=== PATIENT | female | born 1960 | race Caucasian/White ===

== ENCOUNTER → 2021-05-12 12:23 | Outpatient (CLI) | payer OTHER, SELFPAY ==
--- NOTE | 2021-05-12 12:34 | DI.CT.S_ITS ---
PROCEDURE: CT LUMBAR SPINE WO CON INDICATIONS: spinal stenosis TECHNIQUE: Noncontrast 3 mm thick sections acquired from the T12 level to the sacrum. Sagittal and coronal reformats were constructed. For radiation dose reduction, the following was used: automated exposure control. COMPARISON: [facility] Outside Film, MR, MR LUMBAR SPINE WITHOUT CONTRAST, 02/02/2021, 9:19. FINDINGS: Image quality: Excellent. Bones: There is trace retrolisthesis L2 on L3. There are no visualized fractures or dislocations. No suspicious osseous lesions. Minimal anterior osteophytes are noted most notable L2. Sclerotic endplate changes are present L1-L2. [id number]-[id number] multilevel degenerative disc space narrowing is throughout the lumbar spine. Disc bulges are present L1-L2 L2-3 3 L3-4, L4-5 L5-S1. There appears to be persistence left posterior lateral disc extrusion at L5-S1, although better appreciated on MRI exam. Mild spinal stenosis is present L2-3 L3-4, moderate L4-5 moderate to severe L5-S1. Overall appearance is unchanged. Multilevel foraminal narrowing is present, mild right at L1-2, mild left L2-3, mild bilateral L3-4, moderate to severe in the left lateral recess as well as moderate bilateral L4-5, moderate to severe left L5-S1 with significant narrowing through the lateral recess. Multilevel facet hypertrophy is present. Soft tissues: No retroperitoneal masses or hematomas. Visualized aorta is normal in caliber. IMPRESSION: 1. Multilevel disc bulges persistent extrusion at L5-S1. 2. Multilevel spinal stenosis at L2-3, L3-4, L4-5 and most significant at Dictated by: Antionette Navarro M.D. on 05/12/2021 at 20:29 Approved by: Antionette Navarro M.D. on 05/12/2021 at 20:35
== END ==
LOC: CT 12:30
PROVIDERS: Referring Provider Orthopaedic Surgery Orthopaedic Surgery of the Spine; Visit Provider Orthopaedic Surgery Orthopaedic Surgery of the Spine
DX: M51.27 Other intervertebral disc displacement, lumbosacral region (principal); M48.061 Spinal stenosis, lumbar region without neurogenic claudication; M48.07 Spinal stenosis, lumbosacral region
CPT/HCPCS: 72131

== ENCOUNTER → 2021-05-22 14:35 | Outpatient (CLI) | payer OTHER, SELFPAY ==
[2021-05-22 15:06] LABS: COVID19 -Nasal RAPID Negative (Negative)
== END ==
PROVIDERS: Visit Provider Nurse Practitioner Family
DX: Z01.812 Encounter for preprocedural laboratory examination (principal); Z20.822 Contact with and (suspected) exposure to COVID-19
CPT/HCPCS: 87635

== ENCOUNTER 2021-05-25 10:30 | Observation (INO) | payer OTHER, SELFPAY ==
[2021-05-20 08:04] VITALS: BMI 26.6
[2021-05-25] VITALS (12 sets, daily range): BP systolic 124–160; BP diastolic 73–102; PULSE 77–87; RESP 12–16; TEMP 35.8–36.7; O2SAT 92–100; BMI 26.6
[2021-05-25] MEDS: LACTATED RINGERS 1,000 ML 42 ML IV (11:28)
--- NOTE | 2021-05-25 11:31 | PM.PREOP ---
Pre-operative Note COVID-19 COVID-19 status: Negative Criteria for continued procedure: Expected advancement of disease process, Possibility delay results in more complex future surgery or treatment, Increased loss of function, Continuing or worsening of significant or severe pain, Deterioration of the patient's condition or overall health, Delay expected to result in less-positive ultimate med/surg outcome and Non-surgical alternatives not available or appropriate per current SOC Interval Note History & Physical reviewed/Exam performed by Physician: Yes Changes to H&P: No
[2021-05-25] MEDS: CEFAZOLIN 2 GM/20 ML SYRINGE IV (12:10)
--- NOTE | 2021-05-25 12:34 | SUR.OPER ---
Prone on spine table, head in foam head support, padded chest and pelvic supports, gel pad at knees, lower legs supported by pillows; nipples, genitalia and toes free of pressure, arms secured on foam padded arm boards at <90 degrees abduction. Tape over blanket at thigh secured to table.
[2021-05-25] MEDS: BUPIVACAINE LIPOSOME 266 MG/20 ML VIAL INJ (12:47)
[2021-05-25] MEDS: BUPIVACAINE 0.25% (PF) 30 ML, EPINEPHrine 0.3 MG INJ (12:47)
--- NOTE | 2021-05-25 15:00 | DI.RAD.S_ITS ---
PROCEDURE: XR LUMBAR SPINE 2-3V INDICATIONS: L4-5, L5-S1 TLIF TECHNIQUE: 2 views of the lumbar spine were acquired. COMPARISON: None. FINDINGS: Bones: Postsurgical changes compatible with L4-L5 and L5-S1 TLIF. Soft tissues: Overlying bowel gas pattern is normal. No suspicious soft tissue calcifications. IMPRESSION: Active postsurgical change for L4-L5 and L5-S1 TLIF. Dictated by: Elisabeth Pop MD, PhD on 05/25/2021 at 15:12 Approved by: Elisabeth Pop MD, PhD on 05/25/2021 at 15:13
--- NOTE | 2021-05-25 15:53 | P.OP_ITS ---
Operative Date/Time/Diagnoses Date of procedure: 05/25/21 Time of procedure: 12:10 Pre-op diagnosis: 1. L4-5, L5-S1 spondylolisthesis 2. L4-5, L5-S1 spinal stenosis with neurogenic claudication. Post-op diagnosis: same Procedure & Clinicians Procedure: 1. L4-5, L5-S1 Postero-lateral and posterior interbody fusion 2. L4-5, L5-S1 interbody cage placement. 3. L4-5, L5-S1 decompressive laminectomy with bilateral facetecomies 4. L4-5, L5-S1 Posterior segmental instrumentation 5. Chan[place] of bone marrow from iliac crest 6. Utilization of microsurgical technique and operating microscope 7. Utilization of Excelsius robotic surgery Same procedure as scheduled: Yes Indications: Patient has been having chronic back pain and worsening lumbar radiculopathy. Patient failed multiple conservative management with worsening pain weakness and numbness in her lower extremity. Patient has been having difficulty performing activity of daily living. After discussing risks benefits of treatment options, patient elected proceed with surgery. Surgeon: Teresa Hemphill Coordinator Hotels: Katerin Brown Click Yes if Unassisted: No Anesthesia Type: General Operative Notes Closure Type: primary Specimen(s): none sent Applied: catheter Estimated Blood Loss (mL): 100 Blood products transfused: none Procedure in detail: Patient was seen in the preoperative area. Risks and benefits of the surgery was discussed with the patient. Informed consent was obtained from the patient and p laced in the chart. Surgical site was marked. Patient was taken to the operative room. General anesthesia was administered. Prophylactic antibiotic was given to the patient less than 30 min before the incision was made. Patient was placed into a prone position on the Shay table. Patient's back was then prepped and draped in the sterile fashion. Time-out was performed at this time. After patient was prepped and draped, patient's PSIS was palpated and marked bilaterally. Small 1 cm incision was made over the PSIS for placement of the reference probes. Two trocar was placed into the PSIS 1 on each side. The reference probe was attached to the trocar of the reference apparatus. At this time the C-arm imaging was used to confirm AP and lateral of L4-L5, L5- S1 vertebrae and merged the C-arm imaging using the Atterocorus robotic navigation system with the CT of the lumbar spine. After successful merging was completed and confirmed, skin marker was used to kavita out the skin incision using the ProofPilot robotic arm. Bilateral incision was made at this time. Pre templated trajectory was used and guided using the ProofPilot robotic navigation system for bilateral L4, L5, S1 pedicle screw placement. This was done by using the robotic arm to guide the high-speed bur to make a cortical entry point. Next a drill was placed also using the robotic arm and guided using the navigation system drilling partially through bilateral L4, L5 and S1 pedicles. Next L4, L5, S1 pedicle screws it was pre templated and measured was placed onto the power petrol tanker driver and inserted into the pedicles bilaterally. After all 6 screws were placed C-arm imaging was taken of both AP and lateral to confirm the placement. Excellent placement of the screws were confirmed and a matched precisely with the pre planned screw placement using the navigation system. MARs retractor was inserted using Moki - formerly MokiMobilityivation guidence. Globus MARS retractors was placed inside the incision and docked onto the L4 and L5 lamina. Using microsurgical technique and operating microscope, a L4, L5 laminectomy and L4-5, L5-S1 facetectomy was performed using a Kerrison rongeur. Patient was found have severe lateral recess and neural foramen stenosis which was fully decompressed after the laminectomy facetectomy. More than 75% of the facets were removed during the process of decompression rendering L4-5, L5-S1 level grossly unstable and required a fusion procedure at the same time. The disc space at L4-5, L5-S1 was identified, and a total diskectomy was performed at L4- 5, L5-S1 level. The endplates were decorticated using a rasp and shaver. The total diskectomy and decortication was performed at L4-5, L5-S1 level in order to to accomplish a L4-5, L5-S1 fusion. The local bone from the laminectomy and facetectomy was saved for local bone grafting. After the total diskectomy and decortication was completed, Trifecta bone graft material was combined with local bone that was harvested earlier. At this time, a separate skin is incision was made over the iliac crest. A Jamshidi needle was inserted into the iliac crest through a separate skin incision. 5 cc of bone marrow aspiration was obtained through the separate skin incision using a Jamshidi needle from the iliac crest. The bone marrow aspiration was combined with local bone and the Trifecta bone grafting material. The bone grafting material was placed into the L4-5, L5-S1 interbody space along with a expandable cage. The cage was expanded to its maximum height using the torque limiting screwdriver. The disc preparation as well as the cage insertion were also performed under navigation guidance. After the cage was placed, AP and lateral C-arm imaging was taken to confirm placement of the cage and excellent position was confirmed. Globus MARS retractor was inserted and docked onto the L4-5, L5-S1 posterolateral gutter on the right side. Using the power drill, posterior- lateral decortication was performed at L4-5, L5-S1 level until bleeding cortical bone was identified. The remaining bone grafting material was placed into the L4-5, L5-S1 posterior lateral gutter he order to accomplish posterolateral fusion at the L4-5, L5-S1 level. At this time the tulips were attached to the L4, L5, S1 pedicle screw shanks. After measuring the length of the rods, they were inserted into the tulips of the pedicle screws and locked in place using locking caps and torque limiting screwdriver bilaterally. Total 6 caps and 2 titanium rods was used in order to complete the posterior instrumentation construct. After all the hardware was placed, and confirmed with AP and lateral C-arm imaging, the wound was then irrigated with sterile normal saline and packed with Ray-Christine gauze for 3 min to accomplish hemostasis. After the gauze was removed the deep fascia was closed with #1 Vicryl suture. The subcutaneous layer was closed with 2-0 Vicryl. The skin was closed with skin jennifer. Patient tolerated the procedure well. There were no complications. Neuro monitoring system was used to monitor patient's neurologic status throughout entire procedure. There was no disturbance of the neural monitoring signals throughout the case. Complications: none Post-operative Condition: stable Disposition: PACU Plan for aftercare: Admit to inpatient hospital
--- NOTE | 2021-05-25 16:37 | PC.NURSE ---
Day shift: Pt on unit from PACU at approx 1630. She is A&Ox4. She denies any pain or nausea. VS WNL. 97% RA. CMS OK and PPP. Dressing over op-site is CDI. She dose have intermittent shivers now and in PACU (per CROP DUSTER HELPER report). Oriented to room and call light. Agrees to not get OOB w/o help from staff. Richard is patent with clear yellow output. Instructed on I.S. use. IV infusing per JUL.
--- NOTE | 2021-05-25 16:38 | SUR.PHASEI ---
1600-May 25. Pacu note: more awake and alert. transient shivering .no pain. afebrile. warm blankets on and shivers settled down. neuro checks intact no deficit BLE. 162-Report to DarinyGricelda alicea RN -prior to transfer. no shivering. 162-shivering returned when attempt to remove from monitors. blankets reapplied. no fever. csm intact ble. awake ,alert, and oriented. to room by bed with glasses,and 2 bags of belongings. no family at hospital to update per pt.met criteria for transfer. no pain.no nausea. 1625-in room 223. bedside handoff-dressing checked with RN. id band and Experell band left arm on .
[2021-05-25] MEDS: SODIUM CHLORIDE 0.9% 1,000 ML 100 ML IV (17:00)
[2021-05-25] MEDS: HYDROMORPHONE 0.5 MG INJ IV ×2 (17:37→23:10)
[2021-05-25] MEDS: ONDANSETRON 4 MG/2 ML INJ IV (17:37)
[2021-05-25] MEDS: CEFAZOLIN 1 GM VIAL IV (20:02)
[2021-05-25] MEDS: DOCUSATE 100 MG CAPSULE PO (20:02)
[2021-05-25] MEDS: SENNOSIDES 8.6 MG TABLET 17.2 MG PO (20:02)
[2021-05-25] MEDS: hydrOXYzine pamoate 25 MG CAPSULE PO (20:02)
[2021-05-26] MEDS: SODIUM CHLORIDE 0.9% 1,000 ML 100 ML IV (02:28)
[2021-05-26] MEDS: CEFAZOLIN 1 GM VIAL IV (04:16)
[2021-05-26 04:49] VITALS: BP 124/73; PULSE 69; RESP 18; TEMP 36.4; O2SAT 98
[2021-05-26 06:03] LABS: Hematocrit 39.2 % (36-46); Hemoglobin 13.2 g/dL (12.0-16.0)
[2021-05-26 07:41] VITALS: BP 123/67; PULSE 60; RESP 16; TEMP 36.8; O2SAT 98
[2021-05-26] MEDS: OXYCODONE IR 5 MG TABLET 10 MG PO (07:50)
--- NOTE | 2021-05-26 08:10 | PM.PNPO.1 ---
Subjective Subjective Interval history: Pt sitting up in bed, states she just received pain medication (oxycodone 10 mg) and currently rates pain as 7/10. Says she has had difficulty getting comfortable. Pain in back, denies pain in legs. Has not been OOB w/ PT yet. Planning on going home with ; lives in [facility] with 3 steps to get in. Sister also available to help and is bringing seated walker today. Exam Vital Signs (past 8 hours): - 05/26/21 04:49 05/26/21 07:41 Temperature 97.5 F L 98.2 F Pulse Rate 69 60 Respiratory Rate 18 16 Blood Pressure 124/73 123/67 Pulse Oximetry 98 98 Oxygen Delivery Method Room Air Oxygen Flow Rate 0 Narrative Exam Narrative: 5/5 strength in quadriceps, hamstrings, dorsiflexors, plantarflexors bilaterally. Sensation to light touch intact BLE. Calves soft, compressible, nontender and without palpable cords or masses. Const General: cooperative and healthy appearing Orientation: alert, awake and oriented x3 Objective Labs Result Diagrams: 05/26/21 05:20 Labs: Laboratory Results - last 24 hr 05/26/21 05:20 Hgb 13.2 Hct 39.2 PFSH Medical History (Updated 05/20/21 @ 09:06 by Cecelia Sánchez RN) Osteoarthritis Other secondary scoliosis, lumbar region Sciatica Spinal stenosis Spondylolisthesis of lumbar region Surgical History (Updated 05/20/21 @ 09:06 by Cecelia Sánchez RN) Hx of eye surgery (11/2020) Social History household members: spouse Smoking Status: Never smoker alcohol intake: current Assessment & Plan Post-op Postoperative Procedures: Procedures Operation Date: 05/25/21 12:15 Actual Procedure Side Surgeon p L4-5, L5-S1 TLIF with posterior instrumentation-Robot Teresa Hemphill MD Postoperative day: 1 Postoperative status narrative: Recovery as expected s/p 2-level TLIF. Postoperative plan narrative: 1) D/c to home once cleared by PT, hopefully tomorrow. 2) D/c puentes today. 3) Will make acetaminophen scheduled and decrease oxycodone to 5 mg to help manage pain with less sedation.
--- NOTE | 2021-05-26 09:47 | OT.IP.EVAL ---
Current Diagnoses Other secondary scoliosis, lumbar region (05/25/21) Spondylolisthesis, lumbar region (05/25/21) Spinal stenosis, lumbar region with neurogenic claudication (05/25/21) Surgery Performed Operation Date: 05/25/21 12:15 Actual Procedures p L4-5, L5-S1 TLIF with posterior instrumentation-Robot - Teresa Hemphill MD Past Medical History (Last Updated 05/20/21 @ 09:06 by Cecelia Sánchez, RN) Hx of eye surgery (11/2020) Osteoarthritis Other secondary scoliosis, lumbar region Sciatica Spinal stenosis Spondylolisthesis of lumbar region Surgical History (Last Updated 05/20/21 @ 09:06 by Cecelia Sánchez RN) Hx of eye surgery (11/2020) Occupational Therapy Inpatient Evaluation/Re-Eval M1 PT/OT-IP Prior Functional Status Start: 05/26/21 12:19 Freq: NEEDED Status: Active Protocol: Document 05/26/21 12:19 [facility] (Rec: 05/26/21 12:37 [facility] [id number]) Medical Review Prior Functional Status Communication Independent Mobility and Gait Pt states able to walk without a device. Activities of Daily Living and IADL's COmpletely independent with all ADL and IADL needs but had pain. Social History Household Members spouse Living Arrangements Mobile home Number of Floors (Floors) One Floor Number of Stairs To Enter/Railing? 3 steps with left hand rail to enter. Home Environment Standard Height Toilet,Walk in Shower Home Equipment Four Wheel Walker,Straight Cane,Raised Toilet Seat w/ Armrests,Shower Seat without Backrest,Hand Held Shower,Long Handled Shoe Horn,Stock Worker And Deliverer, Grab Bars In Shower Additional Social History Comment Pt's had open heart sx in September, however pt states will be able to assist with her needs at home. In addition her sisters will be there to assist. M2 OT-IP Current Condition Start: 05/26/21 12:19 Freq: Status: Active Protocol: Document 05/26/21 12:19 [facility] (Rec: 05/26/21 12:37 [facility] [id number]) Occupational Therapy Current Condition Current Condition Evaluation Date 05/26/21 Treatment Diagnosis S/p L4-5, L5-S1 TLIF Diagnosis Onset Date 05/25/21 Post Operative Precautions Lumbar Precautions Log Roll,No Twisting,Limit Bending,Lifting Restriction of 10 lbs,Gait Belt above Incisional Area M3 OT- IP Subjective and Pain Start: 05/26/21 12:19 Freq: Status: Active Protocol: Document 05/26/21 12:19 [facility] (Rec: 05/26/21 12:37 [facility] [id number]) OT- Subjective Occupational Therapy Visit Type Type Initial Evaluation Visit Start Time 09:12 Visit Stop Time 09:47 Total Visit Minutes 35 Occupational Therapy Visit Comments Patient Comments Pt agreed to get up for OT eval. Patient/Caregiver Goals To go home. OT Pain Assessment Pain When Pain Assessed At Rest Pain Present Pain Present Pain Reported Location Medial Back Intensity 5 Scale Used Numeric (0 - 10) M4 OT- IP ADL's Start: 05/26/21 12:19 Freq: Status: Active Protocol: Document 05/26/21 12:19 [facility] (Rec: 05/26/21 12:37 [facility] [id number]) OT [id number] General Evaluation Self-Feeding Ability Independent OT ADL-Grooming General Evaluation Grooming Ability Standby Assistance Areas Needing Assistance Retrieving/Set-up of Grooming Items OT ADL-Oral Care General Eval Oral Care Ability Independent Comments Oral Care Comments Educated to best spit into a cup to best follow her back precautions versus hinge at her hips. OT ADL-Dressing General Eval Lower Body Dressing Ability Maximum Assistance Areas Needing Assistance Socks Comments OT Dressing Comments Pt states her will be able to assist with her needs at home. OT ADL-Toileting General Evaluation Toileting Ability Standby Assistance Comments OT Toileting Comments Pt able to stand and wipe effectively in order to follow her back precautions. Educated wet ones with be helpful, wear a pad to prevent hurrying to the bathroom at night and try to taper liquids prior to bedtime. OT ADL-Bathing Comments OT Bathing Comments Pt states wanting to shower tomorrow. M5 OT- IP IADL's Start: 05/26/21 12:19 Freq: Status: Active Protocol: Document 05/26/21 12:19 [facility] (Rec: 05/26/21 12:37 [facility] [id number]) OT-Instrumental Activities of Daily Living Home Safety Awareness Awareness of Need for Assistance at Home Good Awareness Ability to Problem Solve Emergency Able to Problem Solve Situations Home Safety Comments Pt's is retired and will be able to assist pt for needs at this time. Medication Management Medication Management No Deficits Identified Money Management Money Management No Deficits Identified M6 OT- IP Functional Cognition Start: 05/26/21 12:19 Freq: Status: Active Protocol: Document 05/26/21 12:19 [facility] (Rec: 05/26/21 12:37 [facility] [id number]) Cognitive Factors Limiting Selfcare Function Cognitive Ability Level of Alertness Alert Patient Orientation Name,Age,Birthday,Month,Date, Year,Day of Week,Place, Situation Attention Span Ability Capable of Focused Attention, Capable of Sustained Attention Ability to Follow Commands Able to Follow Multi-Step Commands Memory Description No Deficits Noted Cognitive Comments Cognitive Assessment Comments Pt able to follow back precautions with good understanding and safety at this time. OT- Vision and Hearing OT- Hearing Assessment OT- Hearing Assessment WFL OT- Vision Assessment Visual Acuity Glasses All The Time M7 OT- IP Mobility and Balance Start: 05/26/21 12:19 Freq: Status: Active Protocol: Document 05/26/21 12:19 [facility] (Rec: 05/26/21 12:37 [facility] [id number]) OT- Bed Mobility Assessment Rolling Type of Rolling Roll to Left Level of Assistance Contact Guard Assistance Supine to Sit Supine to Sit Assist Standby Assistance Scooting Scooting to Edge of Bed Standby Assistance OT-Transfer Assessment Sit to and From Stand Sit to and from Stand Contact Guard Assistance Transfers Transfer Ability Contact Guard Assistance Technique Transfer Destination Bed,Chair Transfer Technique Stand Step Pivot Devices Transfer Assistive Devices Gait Belt,Front Wheeled Walker Comments Mobility Comments Pt able to follow log rolling and able to get out of bed with CGA/SBA. Pt able to stand with CGA to FWW. Pt states has a step to get into bed at home. Pt able to use FWW to get to the sink and then to the recliner with good safety. OT- Balance Assessment Sitting Balance and Reactions Static Sitting Balance Ability Normal Dynamic Sitting Balance Ability Good Standing Balance and Reactions Static Standing Balance Ability Good Dynamic Standing Balance Ability Fair M8 OT- IP Objective Assessments Start: 05/26/21 12:19 Freq: Status: Active Protocol: Document 05/26/21 12:19 [facility] (Rec: 05/26/21 12:37 [facility] [id number]) OT-Muscle Tone Assessment Muscle Tone WNL Yes M9 OT- IP Assessment and Plan Start: 05/26/21 12:19 Freq: Status: Active Protocol: Document 05/26/21 12:19 [facility] (Rec: 05/26/21 12:37 [facility] [id number]) OT Summary Assessment and Plan Potential Rehabilitation Potential Good Analytic Complexity at Evaluation Low Summary OT Impairments Pain,Functional Mobility, Dressing,Toileting,Bathing, Toilet Transfers,Shower Transfers Progress Towards Goals Progressing Toward Goals Assessment Summary Pt low complexity and main barriers are steps, pain, and now will need assist for ADL and mobility needs. Pt has a supportive to be able to assist her for all needs per pt. To try 4ww tomorrow as pt has one at home versus FWW , otherwise pt to look into getting a FWW if needed. Pt to do showering needs tomorrow for OT needs. Pt to go home when medically stable and assist from and sisters available as needed. Goals Self-Feeding Goal Independent Grooming Goal Independent Dressing Goal Minimal Assistance Toileting Goal Independent Bathing Goal Standby Assistance Toilet Transfer Goal Independent Shower Transfer Goal Independent Patient/Caregiver Education Goal Demonstrate Post-Op Precautions Days to Meet Goals 4 Frequency of Treatment Frequency Of Treatment Once a Day Treatment Plan OT Treatment Plan ADL Training,Functional Mobility,Patient/Family Education,Discharge Planning Other Treatment Recommendations and Next shower Treatment Focus Discharge Recommendations OT Discharge Recommendations Home with Assistance Home Equipment Needs FWW? Transportation Needs at Discharge Private Vehicle
--- NOTE | 2021-05-26 10:15 | PT.IIE ---
Current Diagnoses Other secondary scoliosis, lumbar region (05/25/21) Spondylolisthesis, lumbar region (05/25/21) Spinal stenosis, lumbar region with neurogenic claudication (05/25/21) Surgery Performed Operation Date: 05/25/21 12:15 Actual Procedures p L4-5, L5-S1 TLIF with posterior instrumentation-Robot - Teresa Hemphill MD Medical History (Last Updated 05/20/21 @ 09:06 by Cecelia Sánchez RN) Osteoarthritis Other secondary scoliosis, lumbar region Sciatica Spinal stenosis Spondylolisthesis of lumbar region Physical Therapy Inpatient Evaluation/Re-Eval M1 PT/OT-IP Prior Functional Status Start: 05/26/21 13:01 Freq: NEEDED Status: Active Protocol: Document 05/26/21 10:15 AB (Rec: 05/26/21 13:12 AB [email or web address]) Medical Review Prior Functional Status Medical History Reviewed Yes Communication able to make needs known Mobility and Gait pt stated that she is independent with all mobilities and ambulation without AD Social History Household Members spouse Living Arrangements Mobile home Number of Floors (Floors) One Floor Number of Stairs To Enter/Railing? 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 pt stated that she has a high bed and needs to step up on a foot stool to get into the bed M2 PT-IP Current Condition Start: 05/26/21 13:01 Freq: NEEDED Status: Active Protocol: Document 05/26/21 10:15 AB (Rec: 05/26/21 13:12 AB [email or web address]) Physical Therapy Current Condition Current Condition Evaluation Date 05/26/21 Treatment Diagnosis s/p L4-5,L5S1 TLIF; difficulty in walking Onset Date 05/25/21 M3 PT-IP Subjective Start: 05/26/21 13:01 Freq: NEEDED Status: Active Protocol: Document 05/26/21 10:15 AB (Rec: 05/26/21 13:12 AB [email or web address]) Subjective Physical Therapy Visit Type Type Initial Evaluation Visit Start Time 10:15 Visit Stop Time 10:40 Total Visit Minutes 25 Number of BRIDAL SERVICE SALES AND MANAGEMENT Visits 0 Physical Therapy Visit Comments Patient Comments agreeable to do PT Therapy Pain Assessment Pain When Pain Assessed At Rest Pain Present Pain Present Pain Reported Location Medial Back Intensity 5 Scale Used Numeric (0 - 10) Pain Management Techniques Apply Cold,Distraction, Modification of Treatment,Re- positioning,Timing of Activity with Medications M4 PT-IP Mobility and Gait Start: 05/26/21 13:01 Freq: NEEDED Status: Active Protocol: Document 05/26/21 10:15 AB (Rec: 05/26/21 13:12 AB [email or web address]) PT-Bed Mobility Assessment Rolling Type of Rolling Log Rolling Level of Assist Standby Assistance Supine to Sit Supine to Sit Standby Assistance Sit to Supine Sit to Supine Standby Assistance PT-Transfer Assessment Sit to and From Stand Sit to and from Stand Contact Guard Assistance,1 Person Assistance,Use of Upper Extremities Equipment Transfer Assistive Device Front Wheeled Walker Orthotic/Prosthetic Devices or Brace: No Transfers Transfer Destination Bed,Chair Transfer Technique ambulated using FWW Transfer Ability Level of Assist Standby Assistance,Contact Guard Assistance,1 Person Assistance,Use of Upper Extremities Comments Mobility Comments pt found sitting on chair and agreed to do PT. pt able to recall her back precautions. completed sit to stand from chair CGA and ambulated to the bed using FWW SBA to CGA. completed log roll sit<>supine SBA. completed sit to stand SBA and ambulated in room using FWW ~ 50 ft SBA to CGA. pt sat back on chair. positioned on chair. call light and table placed within reach. Gait Assessment Gait Gait Assistance Required: Standby Assistance,Contact Guard Assist Distance (Feet) 50 Able to Maintain Weight Bearing Status Yes During Gait Assistive Devices Assistive Device Gait Belt,Front Wheeled Walker Orthotic/Prosthetic Devices or Brace: No Gait Deviations General Gait Pattern Decreased Stride Length, Decreased Feet Clearance Factors Limiting Gait Function Factors Limiting Gait Function Decreased Activity Tolerance, Decreased Strength,Limited Range of Motion,Pain,Poor Balance,Poor Safety Awareness PT-Balance Assessment Sitting Balance and Reactions Static Sitting Balance Ability Good Dynamic Sitting Balance Ability Good Standing Balance and Reactions Static Standing Balance Ability Fair Dynamic Standing Balance Ability Fair Device Used FWW M5 PT-IP Objective Assessments Start: 05/26/21 13:01 Freq: NEEDED Status: Active Protocol: Document 05/26/21 10:15 AB (Rec: 05/26/21 13:12 AB [email or web address]) Orientation Orientation/Cognition Level of Alertness Alert Orientation Name,Age,Birthday,Month,Date, Year,Day of Week,Place, Situation Language Function Ability No Deficits Noted Safety Awareness Understands Safety Issues Memory Description No Deficits Noted Gross Range of Motion Lower Extremity ROM Assessment Within Functional Limits Strength Lower Extremity Strength Assessment Left Impaired Hip 4-/5 Knee 4-/5 Coordination Assessment Gross Coordination Gross Coordination WNL Sensation Assessment Sensation Gross Sensation WNL Muscle Tone Muscle Tone WNL Yes M6 PT-IP Treatment Start: 05/26/21 13:01 Freq: NEEDED Status: Active Protocol: Document 05/26/21 10:15 AB (Rec: 05/26/21 13:12 AB [email or web address]) Physical Therapy Treatment Education Education Provided Precautions,Weight Bearing Status,Safety M7 PT-IP Assessment and Plan Start: 05/26/21 13:01 Freq: NEEDED Status: Active Protocol: Document 05/26/21 10:15 AB (Rec: 05/26/21 13:12 AB [email or web address]) PT Summary Assessment and Plan Potential Rehabilitation Potential Good Status of Condition at Evaluation Stable Summary Impairments Pain,ROM,Strength,Balance, Coordination,Sensation,Tone, Cognition,Bed Mobility, Transfers,Gait,Activity Tolerance Assessment Summary pt requiring SBA to CGA with mobility using FWW. pt plans to go home and spouse to assist her. pt may go home when medically stable. Goals Bed Mobility Goal Independent Transfer Goal Independent,Front Wheeled Walker,Four Wheeled Walker Gait Goal Independent,Front Wheel Walker ,Four Wheel Walker Gait Distance 150 Other Goals up/down step stool to bed SBA using FWW Days to Meet Goals 5 Frequency of Treatment Frequency Of Treatment Twice a Day Treatment Plan Physical Therapy Treatment Plan Bed Mobility Training,Transfer Training,Gait Training, Therapeutic Exercise,Balance Retraining,Post Op Education, Discharge Planning,Hot or Cold Pack,Neuromuscular Re-ed, Coordination Retraining,Manual Therapy Other Recommendations and Next Treatment up/down step stool to bed Focus ambulation using 4WW Precautions Lumbar Precautions Log Roll,No Twisting,Limit Bending,Lifting Restriction of 10 lbs,Gait Belt above Incisional Area Recommendations To Nursing Amount of Assist Needed 1 Person Assist Discharge Recommendations PT Discharge Recommendations Home with Assistance Equipment Needed for Home Before FWW if not safe with 4WW Discharge Transportation Needs at Discharge Private Vehicle
[2021-05-26 12:56] VITALS: BP 106/59; PULSE 77; RESP 16; TEMP 36.9; O2SAT 98
--- NOTE | 2021-05-26 14:20 | PT.IPTN ---
Current Diagnoses Other secondary scoliosis, lumbar region (05/25/21) Spondylolisthesis, lumbar region (05/25/21) Spinal stenosis, lumbar region with neurogenic claudication (05/25/21) Surgery Performed Operation Date: 05/25/21 12:15 Actual Procedures p L4-5, L5-S1 TLIF with posterior instrumentation-Robot - Teresa Hemphill MD Physical Therapy Treatment Note M2 PT-IP Current Condition Start: 05/26/21 13:01 Freq: NEEDED Status: Active Protocol: Document 05/26/21 10:15 AB (Rec: 05/26/21 13:12 AB [email or web address]) Physical Therapy Current Condition Current Condition Evaluation Date 05/26/21 Treatment Diagnosis s/p L4-5,L5S1 TLIF; difficulty in walking Onset Date 05/25/21 M3 PT-IP Subjective Start: 05/26/21 13:01 Freq: NEEDED Status: Active Protocol: Document 05/26/21 14:20 AB (Rec: 05/26/21 16:06 AB [email or web address]) Subjective Physical Therapy Visit Type Type Treatment Note Visit Start Time 14:20 Visit Stop Time 14:40 Total Visit Minutes 20 Number of TOMATO PULPER OPERATOR Visits 0 Physical Therapy Visit Comments Patient Comments c/o increase back pain but agreeable to do PT Therapy Pain Assessment Pain When Pain Assessed At Rest Pain Present Pain Present Pain Reported Location Medial Back Intensity 8 Scale Used Numeric (0 - 10) Pain Management Techniques Distraction,Modification of Treatment,Re-positioning, Timing of Activity with Medications M4 PT-IP Mobility and Gait Start: 05/26/21 13:01 Freq: NEEDED Status: Active Protocol: Document 05/26/21 14:20 AB (Rec: 05/26/21 16:06 AB [email or web address]) PT-Bed Mobility Assessment Rolling Level of Assist Standby Assistance Supine to Sit Supine to Sit Standby Assistance Sit to Supine Sit to Supine Standby Assistance PT-Transfer Assessment Sit to and From Stand Sit to and from Stand Contact Guard Assistance,1 Person Assistance,Use of Upper Extremities Equipment Transfer Assistive Device Gait Belt,4 Wheeled Walker Orthotic/Prosthetic Devices or Brace: No Comments Mobility Comments pt completed supine to sit SBA log roll. c/o increase back pain but agreed to ambulate. attempted to simulate height of bed at home. pt stated during eval that she has a high bed and uses a step stool to get in/out of the bed. Upon further questioning, pt stated that she will be able to sit on EOB, scoot and do log roll bed mobility without use of stool. Assessed ambulation using 4WW. educated pt on how to use 4WW/ completed sit to stand CGA and ambulated in room ~ 30 ft using 4WW CGA. pt requested to go back to bed afterwards due to c/o increase back pain. able to sit on EOB (simulated height of bed at home) and completed sit to supine SBA. positioned pt in bed. call light and table placed within reach. pt refused to do stair climbing training today due to increase back pain. Gait Assessment Gait Gait Assistance Required: Contact Guard Assist Distance (Feet) 30 Able to Maintain Weight Bearing Status Yes During Gait Assistive Devices Assistive Device Gait Belt,4 Wheeled Walker Orthotic/Prosthetic Devices or Brace: No Gait Deviations General Gait Pattern Decreased Stride Length, Decreased Feet Clearance Factors Limiting Gait Function Factors Limiting Gait Function Decreased Activity Tolerance, Decreased Strength,Limited Range of Motion,Pain,Poor Balance,Poor Safety Awareness M5 PT-IP Objective Assessments Start: 05/26/21 13:01 Freq: NEEDED Status: Active Protocol: Document 05/26/21 10:15 AB (Rec: 05/26/21 13:12 AB [email or web address]) Orientation Orientation/Cognition Level of Alertness Alert Orientation Name,Age,Birthday,Month,Date, Year,Day of Week,Place, Situation Language Function Ability No Deficits Noted Safety Awareness Understands Safety Issues Memory Description No Deficits Noted Gross Range of Motion Lower Extremity ROM Assessment Within Functional Limits Strength Lower Extremity Strength Assessment Left Impaired Hip 4-/5 Knee 4-/5 Coordination Assessment Gross Coordination Gross Coordination WNL Sensation Assessment Sensation Gross Sensation WNL Muscle Tone Muscle Tone WNL Yes M6 PT-IP Treatment Start: 05/26/21 13:01 Freq: NEEDED Status: Active Protocol: Document 05/26/21 14:20 AB (Rec: 05/26/21 16:06 AB [email or web address]) Physical Therapy Treatment Education Education Provided Safety M7 PT-IP Assessment and Plan Start: 05/26/21 13:01 Freq: NEEDED Status: Active Protocol: Document 05/26/21 14:20 AB (Rec: 05/26/21 16:06 AB [email or web address]) PT Summary Assessment and Plan Potential Rehabilitation Potential Good Summary Impairments Pain,ROM,Strength,Balance, Coordination,Sensation,Tone, Cognition,Bed Mobility, Transfers,Gait,Activity Tolerance Progress Towards Goals Slow Progress due to Pain Assessment Summary pt requiring SBA to CGA with mobility using 4WW but with c/ o increase back pain this afternoon. will continue to assess progress. pt plans to go home and spouse to assist her when needed. Goals Bed Mobility Goal Independent Transfer Goal Independent,Front Wheeled Walker,Four Wheeled Walker Gait Goal Independent,Front Wheel Walker ,Four Wheel Walker Gait Distance 150 Other Goals up/down step stool to bed SBA using FWW Days to Meet Goals 5 Frequency of Treatment Frequency Of Treatment Twice a Day Treatment Plan Physical Therapy Treatment Plan Bed Mobility Training,Transfer Training,Gait Training, Therapeutic Exercise,Balance Retraining,Post Op Education, Discharge Planning,Hot or Cold Pack,Neuromuscular Re-ed, Coordination Retraining,Manual Therapy Precautions Lumbar Precautions Log Roll,No Twisting,Limit Bending,Lifting Restriction of 10 lbs,Gait Belt above Incisional Area Recommendations To Nursing Amount of Assist Needed 1 Person Assist Discharge Recommendations PT Discharge Recommendations Home with Assistance Transportation Needs at Discharge Private Vehicle
[2021-05-26] MEDS: ACETAMINOPHEN 325 MG TABLET 650 MG PO ×2 (14:22→18:11)
[2021-05-26] MEDS: OXYCODONE IR 5 MG TABLET PO ×3 (14:22→21:44)
--- NOTE | 2021-05-26 15:42 | CM.DANOTE ---
Patient is a 60 yo female who was admitted on 05/25/21 for Lumbar Surgery. Pt has UMR for insurance and her PCP is Adan Ramon. EMR was reviewed. Per Ortho PA, pt had some pain management issues but seems less painful now and to work with PT/OT and then likely d/c home tomorrow. Per PT/OT, pt resides in [place] in a double wide trailer with her spouse and works at [employer] in housekeeping and is independent at baseline with ADL's and does not use DME for ambulation at baseline. Pt's and her sister will be available for assist at d/c. PT/OT recommending safe d/c home with family assist and possibly a FWW pending progress. No bedside assessment completed at this time due to triage needs and no identified barriers to discharge. Plan: SW to follow tomorrow to confirm safe d/c home with family assist and determine if FWW needed. SW to follow for any further identified needs. KELSI Harris Discharge Planning/Care Management Advanced directive, confirm from FAMILY Start: 05/25/21 17:25 Freq: Q24H Status: Active Protocol: Document 05/25/21 17:27 YAD (Rec: 05/25/21 17:33 YAD [id number]) Co-Signed By Huma Bhatti RN Advance Directive, confirm on record Time 17:32 Person contacted pateint Copy received No CM Discharge Assessment Start: 05/26/21 15:38 Freq: Status: Active Protocol: Document 05/26/21 15:38 BF (Rec: 05/26/21 15:42 BF [id number]) Discharge Planning Assessment Assigned Hot Metal Mixer Operator KELSI Reyes DPOA/Assigned Designee Name spouse Kartik Contact Information [phone] Advance Directives? No Advance Directives on File No History Provided By Patient,Medical Record Has Patient been admitted in last 30 No days? Prior Living Arrangements Mobile home Household Members spouse Type of transporation used prior to Drives own vehicle admit Independent with ADL's Yes Is patient alert and oriented? Yes Caregiver for Another No Patient/Family Preference OP PT Therapy Barriers to Discharge No Discharge Plan Home Community Services Physical Therapy Transportation Arrangement Spouse or sister can transport at d/c Referrals Initiated None needed Whiteboard Updated in Patient Room with Yes name and ext. # of Hot Metal Mixer Operator Review Status In Process Please Provide Date Initial DC 05/26/21 Assessment Was Performed Next Review Type Continued Stay Review Pre-Anesthesia Assessment Start: 05/20/21 08:04 Freq: Status: Active Protocol: Document 05/20/21 08:04 IRAIDA (Rec: 05/20/21 09:34 CAB [id number]) Pre-Anesthesia Assessment Patient Information Reviewed Via Phone Assessment Assessment Completed With Patient H&P Completed Within 30 Days Yes Diagnostic Results BMP/CMP,CBC,EKG Comment Outside labs/EKG scanned, COVID screen @ 05/22/21 Primary Care Provider Adan Ramon Seen Specialist in Last 12 Months Yes Specialist Seen Orthopedist Primary Language German Field Director Required No Height 167.64 cm Weight 74.843 kg Body Mass Index (BMI) 26.6 Hearing Ability Normal Visual Assist Glasses Dentition Type Teeth, Natural Present,Teeth, Broken Barriers to Learning None Hx Anesthesia Reactions Pt does not have a prior surgical history Hx Family Anesthesia Reaction No Hx Malignant Hyperthermia No Hx Blood Transfusions No Anesthesia Review Requested Yes: PAC courtesy re: Abnormal pre-op EKG alcohol intake current alcohol intake frequency a few times a week Smoking Status Never smoker Substance Use Type does not use Pain Present Pain Reported Musculoskeletal Symptoms Abnormal Gait,Back Pain, Difficulty Walking,Limited Range of Motion,Muscle Weakness,Radiating Pain into Limb History of Falling (Recent or History of No ) Patient is completely paralyzed or No completely immobile Mental Status Oriented to own ability Is patient on oxygen? No Does patient have IVORY/SOB No Hx Sleep Apnea No Currently Taking a Beta Raphael No Can You Climb a Flight of Stairs Without No: A little winded SOB Hx Chest Pain No Hx SOB No Hx Syncope or Dizziness No Anti-Coagulant Therapy No Has a Insurance Claims Clerk No Cardiac Testing No Hx Pacemaker/ICD No Pacemaker Rep Required? 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 Received a COVID vaccine? Yes Received all doses? Yes Marital Status Lives With spouse Prior Living Arrangements Mobile home Support System Spouse Does the Patient Have Assistance After Yes Surgery Patient Discharge Plan Description Return Home Comment Pt advised 2 day length of stay per surgeon Feels Safe in Current Environment Yes Been Physically Hurt or Threatened By a No Person in Current Environment Do you have thoughts of harming yourself None or others? Are you currently considering suicide? No Do you have a plan to hurt yourself or No Plan others? Do You Have Any Spiritual Beliefs That No May Affect Your HC Choices? Do You Have Any Cultural Practices That No May Affect Your HC Choices? Who Can We Speak to About Patient's Care Family, friends Identifying Code for Release of Patient Declines to issue Information Health Care Proxy/Next of Kin Jonny () Lety (sister) Health Care Proxy Phone Number Jonny: [phone] Lety: Emergency Contact Name Jonny () Lety (sister) Emergency Contact Phone Number Jonny: [phone] Lety: [phone] Advance Directives? No Power of Kettle Coordinator No PAC Instructions Durable medical equipment, Medications to take/avoid, Nasal antibiotic,No ETOH/ petroleum product on skin DOS, NPO,Pre-surgical wash,Sturdy shoes/comfortable clothes,Do not bring valuables and remove jewelry
[2021-05-26 16:34] VITALS: BP 121/60; PULSE 74; RESP 16; TEMP 37.2; O2SAT 95
[2021-05-26 20:15] VITALS: BP 122/60; PULSE 76; RESP 18; TEMP 37.5; O2SAT 94
[2021-05-26] MEDS: SENNOSIDES 8.6 MG TABLET 17.2 MG PO (21:44)
[2021-05-26] MEDS: DOCUSATE 100 MG CAPSULE PO (21:44)
[2021-05-27] MEDS: ACETAMINOPHEN 325 MG TABLET 650 MG PO ×3 (00:03→11:47)
[2021-05-27 00:14] VITALS: BP 115/87; PULSE 75; RESP 18; TEMP 36.5; O2SAT 95
[2021-05-27] MEDS: OXYCODONE IR 5 MG TABLET PO ×4 (02:15→16:07)
[2021-05-27 04:23] VITALS: BP 114/56; PULSE 70; RESP 18; TEMP 36.7; O2SAT 97
[2021-05-27 07:47] VITALS: BP 101/62; PULSE 76; RESP 17; TEMP 36.6; O2SAT 95
--- NOTE | 2021-05-27 08:49 | PM.PNPO.1 ---
Subjective Subjective Date Patient Seen: 05/27/21 Time Patient Seen: 08:49 Interval history: Patient's pain is moderate this morning. Able to eat some of her breakfast but notes decreased appetite. She is feeling a little nauseous but no vomiting. Denies fever or chills. Exam Vital Signs (past 8 hours): - 05/27/21 04:23 05/27/21 07:47 Temperature 98.1 F 97.8 F Pulse Rate 70 76 Respiratory Rate 18 17 Blood Pressure 114/56 L 101/62 Pulse Oximetry 97 95 Oxygen Delivery Method Room Air Oxygen Flow Rate 0 Narrative Exam Narrative: 60-year-old female sitting up in bed in no apparent distress. Motor functions intact bilateral lower extremities. Sensation grossly intact to light touch bilateral lower extremities. Const General: cooperative and comfortable Objective Labs Result Diagrams: 05/26/21 05:20 PFSH Medical History Osteoarthritis Other secondary scoliosis, lumbar region Sciatica Spinal stenosis Spondylolisthesis of lumbar region Surgical History Hx of eye surgery (11/2020) Social History household members: spouse Smoking Status: Never smoker alcohol intake: current Assessment & Plan Post-op Postoperative Procedures: Procedures Operation Date: 05/25/21 12:15 Actual Procedure Side Surgeon p L4-5, L5-S1 TLIF with posterior instrumentation-Robot Teresa Hemphill MD Postoperative status narrative: Patient progressing as expected Postoperative plan narrative: Mobilize with physical therapy Multimodal pain management Disposition later today or tomorrow
[2021-05-27] MEDS: ONDANSETRON 4 MG/2 ML INJ IV (08:59)
[2021-05-27] MEDS: DOCUSATE 100 MG CAPSULE PO (08:59)
--- NOTE | 2021-05-27 10:27 | PT.IPTN ---
Current Diagnoses Other secondary scoliosis, lumbar region (05/25/21) Spondylolisthesis, lumbar region (05/25/21) Spinal stenosis, lumbar region with neurogenic claudication (05/25/21) Surgery Performed Operation Date: 05/25/21 12:15 Actual Procedures p L4-5, L5-S1 TLIF with posterior instrumentation-Robot - Teresa Hemphill MD Physical Therapy Treatment Note M2 PT-IP Current Condition Start: 05/26/21 13:01 Freq: NEEDED Status: Active Protocol: Document 05/27/21 09:39 SP (Rec: 05/27/21 12:34 SP [id number]) Physical Therapy Current Condition Current Condition Evaluation Date 05/26/21 Treatment Diagnosis s/p L4-5,L5S1 TLIF; difficulty in walking Onset Date 05/25/21 M3 PT-IP Subjective Start: 05/26/21 13:01 Freq: NEEDED Status: Active Protocol: Document 05/27/21 09:39 SP (Rec: 05/27/21 12:34 SP [id number]) Subjective Physical Therapy Visit Type Type Treatment Note Visit Start Time 09:39 Visit Stop Time 10:27 Total Visit Minutes 48 Number of NEWSAGENT Visits 1 Physical Therapy Visit Comments Patient Comments Pt report having LBP 6/10 but willing to mobilize to assess gait and stairs. Patient Goals Return home with spouse to assist her. Therapy Pain Assessment Pain When Pain Assessed At Rest Pain Present Pain Present Pain Reported Location Medial Back Intensity 6 Scale Used 6/10 at rest, increased with mobility not quantified Description With Movement Pain Behaviors Facial Grimacing Pain Management Techniques Apply Cold,Distraction, Modification of Treatment,Re- positioning,Timing of Activity with Medications M4 PT-IP Mobility and Gait Start: 05/26/21 13:01 Freq: NEEDED Status: Active Protocol: Document 05/27/21 09:39 SP (Rec: 05/27/21 12:34 SP [id number]) PT-Bed Mobility Assessment Sit to Supine Sit to Supine Minimal Assistance Scooting Scooting Up and Down in Bed Standby Assistance PT-Transfer Assessment Sit to and From Stand Sit to and from Stand Standby Assistance,Use of Upper Extremities Equipment Transfer Assistive Device Gait Belt,Front Wheeled Walker ,4 Wheeled Walker Orthotic/Prosthetic Devices or Brace: No Transfers Transfer Destination Bed,Chair,Wheelchair Transfer Technique ambulated using FWW Transfer Ability Level of Assist Standby Assistance,Contact Guard Assistance,1 Person Assistance,Use of Upper Extremities Comments Mobility Comments Pt seated in chair resting from shower with OT withing past hr. Pt reported unsure if family coming today so unsure of caregiver training. Sit> stand SBA w/ FWW initially gait to w/c CGA to sit cues reaching back slow descent. Wheeled downto stairs, completed 3 step stair mgt B UE on L HR discomfort in back and not want to side step , provided SPC for RUE (can borrow from sister) CGA. Pt walked further distance stairs back to room approx 270 ft SBA w/FWW, wc follow not needed. Pt rested in chair. Assessed gait w/out AD, CGA-5% A for steady trunk during gait no LOB, provide SPC CGA-5 %A with max cues for patterning in RUE with LLE due to never used one before. Gait w/ 4WW SBA steady, states uses at home, cued x2 for proper brake squeeze during turns around end bed for slow pacing and lock mgt pre sit, stand for safety carryover with cues. Pt requested to return to bed Sit>supine 10%A for each LE complete into bed and proper LR demonstrated SBA , provided pillows under LEs and pt adjusted bed for comfort, LBP 12/16 reported end tx. Pt had call light and all needs in reach with alarm donned for OOB mobility safety fall risk. Pt is ok to return home with spouse to assist her when medically cleared, reports still limited by her pain but progressed well this tx. Pt stated her spouse could help her with the little assist needs and will be using her 4WW, agreed balance without AD not good enough yet . Pt would benefit from HHPT for progressing strength, balance toward PLOF. NEWSAGENT not requiring CGT unless spouse feels would benefit mobility cues for him and pt and assess stair mgt. Will assess in pm if pt and spouse wish. Gait Assessment Gait Gait Assistance Required: Contact Guard Assist Distance (Feet) 270 Able to Maintain Weight Bearing Status Yes During Gait Assistive Devices Assistive Device Gait Belt,Straight Cane,Front Wheeled Walker,4 Wheeled Walker Orthotic/Prosthetic Devices or Brace: No Gait Deviations General Gait Pattern Antalgic,Decreased Stride Length,Decreased Feet Clearance Factors Limiting Gait Function Factors Limiting Gait Function Decreased Activity Tolerance, Decreased Strength,Limited Range of Motion,Pain,Poor Balance,Poor Safety Awareness Comments Gait Comments See mobility comments Stair Climbing Assessment Evaluation Level of Assist On Stairs Contact Guard Assistance,1 Person Assistance Devices Stair Climbing Assistive Devices Straight Cane,Left Railing Technique/Endurance Stair Climbing Direction Ascend and Descend Stair Climbing Technique Step to Step Number of Steps Climbed 3 Stair Climbing Set # Repetitions (reps) 1 Comments Stair Climbing Comments CGA with use of SPC on R and LHR, cued for patterning LE/ SPC, no LOB. PT-Balance Assessment Sitting Balance and Reactions Static Sitting Balance Ability Normal Dynamic Sitting Balance Ability Good Standing Balance and Reactions Static Standing Balance Ability Good Dynamic Standing Balance Ability Good Device Used FWW/ 4WW, fair dynamic balance SPC require CGA-5%A M5 PT-IP Objective Assessments Start: 05/26/21 13:01 Freq: NEEDED Status: Active Protocol: Document 05/26/21 10:15 AB (Rec: 05/26/21 13:12 AB [id number]) Orientation Orientation/Cognition Level of Alertness Alert Orientation Name,Age,Birthday,Month,Date, Year,Day of Week,Place, Situation Language Function Ability No Deficits Noted Safety Awareness Understands Safety Issues Memory Description No Deficits Noted Gross Range of Motion Lower Extremity ROM Assessment Within Functional Limits Strength Lower Extremity Strength Assessment Left Impaired Hip 4-/5 Knee 4-/5 Coordination Assessment Gross Coordination Gross Coordination WNL Sensation Assessment Sensation Gross Sensation WNL Muscle Tone Muscle Tone WNL Yes M6 PT-IP Treatment Start: 05/26/21 13:01 Freq: NEEDED Status: Active Protocol: Document 05/27/21 09:39 SP (Rec: 05/27/21 12:34 SP [id number]) Physical Therapy Treatment Education Education Provided Safety Other Treatments Other Treatment Performed Education on use of CP for pain control, agreeable to using, cued for postural alignment and TA bracing needed for mobility for pain control but that mobility hourly while awake for circulation, strength and functional independence in mobility and decrease risk for DVT with verbalized understanding. M7 PT-IP Assessment and Plan Start: 05/26/21 13:01 Freq: NEEDED Status: Active Protocol: Document 05/27/21 09:39 SP (Rec: 05/27/21 12:34 SP [id number]) PT Summary Assessment and Plan Potential Rehabilitation Potential Good Status of Condition at Evaluation Stable Summary Impairments Pain,ROM,Strength,Balance, Coordination,Sensation,Tone, Cognition,Bed Mobility, Transfers,Gait,Activity Tolerance Progress Towards Goals Progressing Toward Goals,Slow Progress due to Pain,Slow Progress due to Activity Tolerance Assessment Summary Pt increased time to mobilize due to pain and tiring. She required 10%A LE into bed sit> L SL>supine, SBA transfers/ gait w/FWW and 4WW, CG- 5%A using SPC, CGA 3 step mgt L HR / SPC in RUE vs 2 UEs on L HR back discomfort. Pt stated sister has SPC can borrow. Pt is ok to return home with spouse to assist her, sister plans to assist with transportation when medically cleared. Pt mobilizes much better, limited by pain. Pt would benefit from HHPT for progressing strength, balance toward PLOF gait I without AD. Goals Bed Mobility Goal Independent Transfer Goal Independent,Front Wheeled Walker,Four Wheeled Walker Gait Goal Independent,Front Wheel Walker ,Four Wheel Walker Gait Distance 150 Other Goals up/down step stool to bed SBA using FWW Days to Meet Goals 5 Frequency of Treatment Frequency Of Treatment Twice a Day Treatment Plan Physical Therapy Treatment Plan Bed Mobility Training,Transfer Training,Gait Training, Therapeutic Exercise,Balance Retraining,Post Op Education, Discharge Planning,Hot or Cold Pack,Neuromuscular Re-ed, Coordination Retraining,Manual Therapy Other Recommendations and Next Treatment up/ down step stool at EOB, Focus progress balance, gait LRAD. Precautions Lumbar Precautions Log Roll,No Twisting,Limit Bending,Lifting Restriction of 10 lbs,Gait Belt above Incisional Area Other Precautions Good recall and maintains spinal precautionsd during mobility. Recommendations To Nursing Amount of Assist Needed 1 Person Assist Discharge Recommendations PT Discharge Recommendations Home with Assistance,Home Health Equipment Needed for Home Before Borrow SPC for stair mgt from Discharge sister. Pt ok to use 4WW at home. Transportation Needs at Discharge Private Vehicle
--- NOTE | 2021-05-27 10:43 | OT.IP.TRT ---
Current Diagnoses Other secondary scoliosis, lumbar region (05/25/21) Spondylolisthesis, lumbar region (05/25/21) Spinal stenosis, lumbar region with neurogenic claudication (05/25/21) Surgery Performed Operation Date: 05/25/21 12:15 Actual Procedures p L4-5, L5-S1 TLIF with posterior instrumentation-Robot - Teresa Hemphill MD Occupational Therapy Treatment Note M2 OT-IP Current Condition Start: 05/26/21 12:19 Freq: Status: Active Protocol: Document 05/26/21 12:19 [facility] (Rec: 05/26/21 12:37 [facility] [id number]) Occupational Therapy Current Condition Current Condition Evaluation Date 05/26/21 Treatment Diagnosis S/p L4-5, L5-S1 TLIF Diagnosis Onset Date 05/25/21 Post Operative Precautions Lumbar Precautions Log Roll,No Twisting,Limit Bending,Lifting Restriction of 10 lbs,Gait Belt above Incisional Area M3 OT- IP Subjective and Pain Start: 05/26/21 12:19 Freq: Status: Active Protocol: Document 05/27/21 10:37 [facility] (Rec: 05/27/21 10:43 [facility] [id number]) OT- Subjective Occupational Therapy Visit Type Type Treatment Note Visit Start Time 09:10 Visit Stop Time 09:51 Total Visit Minutes 41 Occupational Therapy Visit Comments Patient Comments Pt wanting to shower and initially hesitant to go home but now feeling ready to go home today. Patient/Caregiver Goals TO go home. OT Pain Assessment Pain When Pain Assessed At Rest Pain Present Pain Present Pain Reported Location Medial Back Intensity 3 Scale Used Numeric (0 - 10) M4 OT- IP ADL's Start: 05/26/21 12:19 Freq: Status: Active Protocol: Document 05/27/21 10:37 [facility] (Rec: 05/27/21 10:43 [facility] [id number]) OT [id number] General Evaluation Self-Feeding Ability Independent OT ADL-Dressing General Eval Lower Body Dressing Ability Minimal Assistance,Moderate Assistance Comments OT Dressing Comments Assist for socks and tie shoes . OT ADL-Toileting Comments OT Toileting Comments Able to show pt toilet paper aid that may be helpful for pt to increased ease for hygiene needs at home. OT ADL-Bathing Bathing Type Bathing Type Shower General Evaluation Bathing Ability Moderate Assistance Areas Needing Assistance Wash/Dry Back,Wash/Dry Perineal Area,Wash/Dry Lower Extremities Comments OT Bathing Comments Pt able to shower while seated and needing assist for her back and legs at this time due to her back precautions. Pt' s to be able to assist her at home. M5 OT- IP IADL's Start: 05/26/21 12:19 Freq: Status: Active Protocol: Document 05/26/21 12:19 [facility] (Rec: 05/26/21 12:37 [facility] [id number]) OT-Instrumental Activities of Daily Living Home Safety Awareness Awareness of Need for Assistance at Home Good Awareness Ability to Problem Solve Emergency Able to Problem Solve Situations Home Safety Comments Pt's is retired and will be able to assist pt for needs at this time. Medication Management Medication Management No Deficits Identified Money Management Money Management No Deficits Identified M6 OT- IP Functional Cognition Start: 05/26/21 12:19 Freq: Status: Active Protocol: Document 05/27/21 10:37 [facility] (Rec: 05/27/21 10:43 [facility] [id number]) Cognitive Factors Limiting Selfcare Function Cognitive Ability Level of Alertness Alert Patient Orientation Name,Age,Birthday,Month,Date, Year,Day of Week,Place, Situation Attention Span Ability Capable of Focused Attention, Capable of Sustained Attention Ability to Follow Commands Able to Follow Multi-Step Commands Memory Description No Deficits Noted Cognitive Comments Cognitive Assessment Comments NO deficits noted. M7 OT- IP Mobility and Balance Start: 05/26/21 12:19 Freq: Status: Active Protocol: Document 05/27/21 10:37 [facility] (Rec: 05/27/21 10:43 [facility] [id number]) OT- Bed Mobility Assessment Rolling Level of Assistance Standby Assistance Supine to Sit Supine to Sit Assist Standby Assistance Scooting Scooting to Edge of Bed Standby Assistance OT-Transfer Assessment Sit to and From Stand Sit to and from Stand Standby Assistance Transfers Transfer Ability Standby Assistance Technique Transfer Destination Bed,Chair,Shower Stall,Toilet Transfer Technique Stand Step Pivot Devices Transfer Assistive Devices Gait Belt,Front Wheeled Walker Comments Mobility Comments SBA for all mobility needs with good safety. OT- Gait Assessment Comments Gait Ability Comments SBA with FWW OT- Balance Assessment Sitting Balance and Reactions Static Sitting Balance Ability Normal Dynamic Sitting Balance Ability Good Standing Balance and Reactions Static Standing Balance Ability Good Dynamic Standing Balance Ability Fair M8 OT- IP Objective Assessments Start: 05/26/21 12:19 Freq: Status: Active Protocol: Document 05/26/21 12:19 [facility] (Rec: 05/26/21 12:37 [facility] [id number]) OT-Muscle Tone Assessment Muscle Tone WNL Yes M9 OT- IP Assessment and Plan Start: 05/26/21 12:19 Freq: Status: Active Protocol: Document 05/27/21 10:37 [facility] (Rec: 05/27/21 10:43 [facility] [id number]) OT Summary Assessment and Plan Potential Rehabilitation Potential Good Analytic Complexity at Evaluation Low Summary Progress Towards Goals Progressing Toward Goals Assessment Summary Pt doing well and able to safely follow her back precautions for all ADl and mobility needs. Pt to go home when medically stable and her to assist and sisters as needed. Goals Days to Meet Goals 1 Frequency of Treatment Frequency Of Treatment Once a Day Treatment Plan OT Treatment Plan ADL Training,Functional Mobility,Patient/Family Education,Discharge Planning Discharge Recommendations OT Discharge Recommendations Home with Assistance Transportation Needs at Discharge Private Vehicle
--- NOTE | 2021-05-27 10:56 | PC.NURSE ---
Pt worked with PT and OT and showered. Old dsg removed and new Coversite placed. Homero intact. Scattered bruising evident on Staple line.
--- NOTE | 2021-05-27 15:05 | PT.IPTN ---
Current Diagnoses Other secondary scoliosis, lumbar region (05/25/21) Spondylolisthesis, lumbar region (05/25/21) Spinal stenosis, lumbar region with neurogenic claudication (05/25/21) Surgery Performed Operation Date: 05/25/21 12:15 Actual Procedures p L4-5, L5-S1 TLIF with posterior instrumentation-Robot - Teresa Hemphill MD Physical Therapy Treatment Note M2 PT-IP Current Condition Start: 05/26/21 13:01 Freq: NEEDED Status: Active Protocol: Document 05/27/21 09:39 SP (Rec: 05/27/21 12:34 SP [id number]) Physical Therapy Current Condition Current Condition Evaluation Date 05/26/21 Treatment Diagnosis s/p L4-5,L5S1 TLIF; difficulty in walking Onset Date 05/25/21 M3 PT-IP Subjective Start: 05/26/21 13:01 Freq: NEEDED Status: Active Protocol: Document 05/27/21 15:05 AB (Rec: 05/27/21 15:41 AB [id number]) Subjective Physical Therapy Visit Type Type Treatment Note Visit Start Time 15:05 Visit Stop Time 15:25 Total Visit Minutes 20 Number of [facility] LEAD Visits 0 Physical Therapy Visit Comments Patient Comments agreeable to do PT Therapy Pain Assessment Pain When Pain Assessed At Rest Pain Present Pain Present Pain Reported Location Medial Back Scale Used pain scale not stated but stated that pain is not too bad M4 PT-IP Mobility and Gait Start: 05/26/21 13:01 Freq: NEEDED Status: Active Protocol: Document 05/27/21 15:05 AB (Rec: 05/27/21 15:41 AB [id number]) PT-Bed Mobility Assessment Rolling Type of Rolling Log Rolling Level of Assist Standby Assistance Supine to Sit Supine to Sit Standby Assistance PT-Transfer Assessment Sit to and From Stand Sit to and from Stand Standby Assistance Equipment Transfer Assistive Device Gait Belt,Front Wheeled Walker Transfers Transfer Destination Chair Transfer Technique ambulated Transfer Ability Level of Assist Standby Assistance Comments Mobility Comments pt supine in bed and agreed to do PT. completed supine to sit SBA. pt does not want to walk down to the stairs but agreed to do stair climbing training using a step stool in room. pt stated that she plans to hold on to L rail and she will hold on to spouse on R side for assistance. pt completed up/down step stool using L rail and LEATHER SEASONER on R CGA. Assessed stairs again with pt using just L rail and completed CGA. pt ambulated in the hallway using 4WW SBA ~ 125 ft. pt sat on chair. positioned on chair. call light and table placed within reach. Gait Assessment Gait Gait Assistance Required: Standby Assistance Distance (Feet) 125 Able to Maintain Weight Bearing Status Yes During Gait Assistive Devices Assistive Device Gait Belt,Front Wheeled Walker Orthotic/Prosthetic Devices or Brace: No Gait Deviations General Gait Pattern Decreased Stride Length, Decreased Feet Clearance Factors Limiting Gait Function Factors Limiting Gait Function Decreased Activity Tolerance, Decreased Strength,Limited Range of Motion,Pain,Poor Balance Stair Climbing Assessment Evaluation Level of Assist On Stairs Contact Guard Assistance,1 Person Assistance Devices Stair Climbing Assistive Devices Left Railing Technique/Endurance Stair Climbing Direction Ascend and Descend Stair Climbing Technique Step to Step Number of Steps Climbed 1 Stair Climbing Set # Repetitions (reps) 2 M5 PT-IP Objective Assessments Start: 05/26/21 13:01 Freq: NEEDED Status: Active Protocol: Document 05/26/21 10:15 AB (Rec: 05/26/21 13:12 AB [id number]) Orientation Orientation/Cognition Level of Alertness Alert Orientation Name,Age,Birthday,Month,Date, Year,Day of Week,Place, Situation Language Function Ability No Deficits Noted Safety Awareness Understands Safety Issues Memory Description No Deficits Noted Gross Range of Motion Lower Extremity ROM Assessment Within Functional Limits Strength Lower Extremity Strength Assessment Left Impaired Hip 4-/5 Knee 4-/5 Coordination Assessment Gross Coordination Gross Coordination WNL Sensation Assessment Sensation Gross Sensation WNL Muscle Tone Muscle Tone WNL Yes M6 PT-IP Treatment Start: 05/26/21 13:01 Freq: NEEDED Status: Active Protocol: Document 05/27/21 15:05 AB (Rec: 05/27/21 15:41 AB [id number]) Physical Therapy Treatment Education Education Provided Precautions,Safety M7 PT-IP Assessment and Plan Start: 05/26/21 13:01 Freq: NEEDED Status: Active Protocol: Document 05/27/21 15:05 AB (Rec: 05/27/21 15:41 AB [id number]) PT Summary Assessment and Plan Potential Rehabilitation Potential Good Summary Impairments Pain,ROM,Strength,Balance, Coordination,Sensation,Tone, Cognition,Bed Mobility, Transfers,Gait,Activity Tolerance Progress Towards Goals Progressing Toward Goals Assessment Summary pt requiring SBA with mobility and agreed to use 4WW at home for safety. Pt also able to complete stair using just L rail CGA. pt plans to go home with spouse to assist her and may go home when medically stable. Goals Bed Mobility Goal Independent Transfer Goal Independent,Front Wheeled Walker,Four Wheeled Walker Gait Goal Independent,Front Wheel Walker ,Four Wheel Walker Gait Distance 150 Other Goals up/down 3 steps L rail ascending SBA Days to Meet Goals 5 Frequency of Treatment Frequency Of Treatment Twice a Day Treatment Plan Physical Therapy Treatment Plan Bed Mobility Training,Transfer Training,Gait Training, Therapeutic Exercise,Balance Retraining,Post Op Education, Discharge Planning,Hot or Cold Pack,Neuromuscular Re-ed, Coordination Retraining,Manual Therapy Precautions Lumbar Precautions Log Roll,No Twisting,Limit Bending,Lifting Restriction of 10 lbs,Gait Belt above Incisional Area Recommendations To Nursing Amount of Assist Needed 1 Person Assist Discharge Recommendations PT Discharge Recommendations Home with Assistance Transportation Needs at Discharge Private Vehicle
[2021-05-27] MEDS: MAG HYDROX/ALUM/SIMETH 30 ML UDC PO (16:07)
--- NOTE | 2021-05-27 16:59 | PC.NURSE ---
Pt is dressed and ready for discharge home with Sister. IV has been removed. Pt was given Oxycondone 5mg and Maalox per request. Went over d/c instructions with Pt-discussed d/c meds, time of last dose, reviewed stroke education, reminded Pt to follow back precautions, Encouraged Pt to drink plenty of fluids to prevent constipation or dehydration, no driving while on narcotics and follow up as scheduled. Pt denies further questions and was taken out via w/c by COPIER OPERATOR to POV with Sister and all belongings.
--- NOTE | 2021-06-03 10:37 | PM.DS.1 ---
History of Present Illness History of Present Illness Date Patient Seen: 05/27/21 Time Patient Seen: 08:49 Chief complaint: OPB Narrative: See progress note Discharge Providers Provider Date of admission: 05/25/21 10:30 Discharge Date: 05/27/21 Primary care physician: Adan Ramon MD Consults: 05/21/21 13:51 Consult to Anesthesiology Routine Comment: Consulting Provider: Anesthesiologist Reason for consultation: PAC Courtesy re: Abnormal pre-op EKG 05/25/21 16:32 Consult to Occupational Therapy Evaluate & Treat Comment: Physician Instructions: Evaluate and treat Consult to Physical Therapy Evaluate & Treat Comment: Physician Instructions: Evaluate and Treat Discharge provider: Ivan Lucero PA-C Summary Hospital Course Discharge Diagnosis: 1. L4-5, L5-S1 spondylolisthesis 2. L4-5, L5-S1 spinal stenosis with neurogenic claudication. Hospital Course: 1. L4-5, L5-S1 Postero-lateral and posterior interbody fusion 2. L4-5, L5-S1 interbody cage placement. 3. L4-5, L5-S1 decompressive laminectomy with bilateral facetecomies 4. L4-5, L5-S1 Posterior segmental instrumentation 5. [place] of bone marrow from iliac crest 6. Utilization of microsurgical technique and operating microscope 7. Utilization of [employer] robotic surgery Same procedure as scheduled: Yes Indications: Patient has been having chronic back pain and worsening lumbar radiculopathy. Patient failed multiple conservative management with worsening pain weakness and numbness in her lower extremity.? Patient has been having difficulty performing activity of daily living.? After discussing risks benefits of treatment options, patient elected proceed with surgery. Surgeon: Teresa Hemphill Cpc Coder: Katerin Brown Click Yes if Unassisted: No Anesthesia Type: General Operative Notes Closure Type: primary Specimen(s): none sent Applied: catheter Estimated Blood Loss (mL): 100 Blood products transfused: none Patient admitted to the hospital for the above-mentioned procedure. Patient consented to the same. Patient taken operating room on May 25, 2021. Patient back in her room recovering well and in stable condition. Patient deemed suitable for discharge on May 27, 2021. Patient is discharged home in stable condition. Exam Vital Signs (past 8 hours): Oxygen Delivery Method Room Air Oxygen Flow Rate 0 Narrative Exam Narrative: See progress note Objective Labs Result Diagrams: 05/26/21 05:20 PFSH Medical History Osteoarthritis Other secondary scoliosis, lumbar region Sciatica Spinal stenosis Spondylolisthesis of lumbar region Surgical History Hx of eye surgery (11/2020) Social History household members: spouse Smoking Status: Never smoker alcohol intake: current Discharge Assessment & Plan Assessment and Plan Assessment: Stable Plan of Treatment: Discharge home in stable condition Discharge Plan Discharge Plan Patient Disposition: Home Discharge orders & Medications Prescriptions: New acetaminophen 325 mg Tablet 650 mg PO Q6HR Qty: 60 0RF oxycodone 5 mg Tablet 5 mg PO Q3HR PRN (Reason: Pain, Severe (7-10)) Qty: 60 0RF Follow up/Referrals: Teresa Hemphill MD [Physician] - (2 weeks with [facility]) Adan Ramon MD [Primary Care Provider] - Diet/Activity/Treatments Diet: Diet as Tolerated Activity: Limit bending, lifting, twisting Cold/Heat Therapy: ice as needed Skin/Wound/Dressing Care Dressing: keep clean and dry Visit Report/Discharge Packet Instructions: DI for Prescription Opioid Use, Oxycodone, DI for Transforaminal Lumbar Interbody Fusion Stand Alone Forms: Surgery Discharge Discharge Data Primary Care Provider: Adan Ramon Attending Provider: Teresa Hemphill
== END 2021-05-27 17:02 | disposition home or self-care (01) ==
LOC: OR 10:31 → AC 10:31
PROVIDERS: Admitting Provider Orthopaedic Surgery Orthopaedic Surgery of the Spine; PCP Family Medicine; Referring Provider Orthopaedic Surgery Orthopaedic Surgery of the Spine; Visit Provider Orthopaedic Surgery Orthopaedic Surgery of the Spine
PROC: (CPT 20939; principal; 2021-05-25 12:15)
DX: M48.062 Spinal stenosis, lumbar region with neurogenic claudication (principal); M41.56 Other secondary scoliosis, lumbar region; M43.16 Spondylolisthesis, lumbar region
CPT/HCPCS: 20939; 22633; 22634; 22853 ×2; 22842; 63052; 63053; 36415; 72100; 76000; 82962; 85014; 85018; 97116; 97161; 97165; 97530; 97535; G0378; C1713; C1831; C9290; J0171; J0690; J1100; J1170; J2250; J2405; J2704; J3010